=== PATIENT | female | born 1990 ===

== ENCOUNTER 2023-03-03 05:40 | Inpatient (IN) | payer OTHER ==
[~2023-03-03] VITALS: Ht 154.9 cm; Wt 89.4 kg
[2023-03-03] MEDS ORDERED: PRENATAL TABLE1 EAC1 PO (06:42)
[2023-03-03] MEDS ORDERED: IRON240 MG PO (06:42)
[2023-03-03 06:45] LABS: PH,URINE 6.5 (5.0-8.0); URINE APPEARANCE Cloudy; URINE BILIRRUBIN Negative (NEGATIVE); URINE BLOOD Negative; URINE COLOR Yellow; URINE GLUCOSE Negative (NEGATIVE); URINE LEUKOCYTE Moderate; URINE NITRATE Negative; URINE PROTEIN Negative (NEGATIVE); URINE UROBILINOGEN 0.2 E.U./dl
[2023-03-03 06:48] LABS: URINE BACTERIA 2158.3 uL (0.0-1933); URINE EPITHELIAL CELLS 159.6 uL (0.0-38.8); URINE WBC 165.8 uL (0.0-23.2)
[2023-03-03 06:55] LABS: HEMATOCRIT 32.4 % (36.0-45.00); HEMOGLOBIN 10.8 g/dL (12.0-15.00); MEAN CELL VOLUME 81.1 fL (80.00-100.00); MEAN CORPUSCULAR HEMOGLOBIN 27.1 pg (27.00-32.0); MEAN CORPUSCULAR HGB CONC 33.5 g/dl (32.0-36.0); PLATELET COUNT 259 K/uL (150-450); RED CELL DISTRIBUTION WIDTH 16.2 % (11.5-14.5)
[2023-03-03 07:06] LABS: INR < 0.93; PARTIAL THROMBOPLASTIN TIME 29.2 SECONDS (22.0-34.0); PROTHROMBIN TIME 9.7 SECONDS (9.0-11.5)
[2023-03-03 07:51] LABS: URINE RBC 1.5 uL (0.0-20.8)
[2023-03-03 08:05] LABS: ALBUMIN 2.8 gm/dL (3.4-5.0); BILIRUBIN TOTAL 0.24 mg/dL (0.3-1.2); CALCIUM 9.6 mg/dL (8.5-10.1); CREATININE SERUM 0.51 mg/dL (0.55-1.02); GFR 141.59; GLOBULINA 3.7 G/DL (2.4-3.5); POTASSIUM 4.1 mEq/L (3.5-5.1); TOTAL PROTEIN 6.5 gm/dL (6.4-8.2)
[2023-03-03 15:43] LABS: ABG PH 7.328 (7.35-7.45); ABG PO2 23.5 mmHg (80-100); ABG pCO2 47.1 mmHg (35-45); BASE EXCESS -2.2 mmol/l; BICARBONATE 24.1 mmol/l (23-25); SaO2 35.3 %; Tco2 25.6 mmol/l; o2 21 %
== END 2023-03-05 15:36 | disposition home or self-care (01) | DRG 807 ==
LOC: LDR 05:40 → OB/GYN 13:40
PROVIDERS: ADMIT Specialist; ATTEND Specialist
PROC: 10E0XZZ Delivery of Products of Conception, External Approach (ICD-10-PCS; principal; 2023-03-03)
PROC: 0HQ9XZZ Repair Perineum Skin, External Approach (ICD-10-PCS; 2023-03-03)
PROC: 4A1HXCZ Monitoring of Products of Conception, Cardiac Rate, External Approach (ICD-10-PCS; 2023-03-03)
DX: O70.0 First degree perineal laceration during delivery (principal); Z37.0 Single live birth; Z3A.39 39 weeks gestation of pregnancy; Z20.822 Contact with and (suspected) exposure to COVID-19